=== PATIENT | male | born 1995 | race Caucasian/White ===

== ENCOUNTER 2019-07-01 18:34 | Emergency (ER) | payer BC ==
[~2019-07-01] VITALS: Ht 177.8 cm; Wt 81.6 kg
[2019-07-01 18:55] VITALS: BP 148/78
--- NOTE | 2019-07-01 20:05 | NUR ---
URINE SAMPLE OBTAINED AND SENT TO LAB.
[2019-07-01 20:29] LABS: APPEARANCE,URINE Clear (CLEAR); BILIRUBIN,URINE Negative (NEGATIVE); BLOOD, URINE Negative Ery/uL (NEGATIVE); COLOR,URINE Yellow (YELLOW); KETONES,URINE Negative (NEGATIVE); LEUKOCYTE ESTERASE ,URINE Negative (NEGATIVE); NITRITE, URINE Negative (NEGATIVE); PROTEIN,URINE Negative (NEGATIVE); UGLUCOSE Negative (NEGATIVE); UROBILINOGEN,URINE 0.2 EU/dL (0.2)
== END 2019-07-01 21:42 | disposition home or self-care (01) ==
LOC: ER 18:38
DX: R42 Dizziness and giddiness (principal); Z98.890 Other specified postprocedural states; Z60.2 Problems related to living alone
CPT/HCPCS: 81001; 93005; 99284; J7030; 81000-TC